=== PATIENT | male | born 1950 | race Caucasian/White ===

== ENCOUNTER 2019-07-16 13:16 | Outpatient (CLI) | payer MEDICARE, OTHER ==
[2019-07-16] MEDS ORDERED: GLIM4TAB4 PO (15:04)
[2019-07-16] MEDS ORDERED: LEVO25TA4 PO (15:04)
[2019-07-16] MEDS ORDERED: turmeric/curcumin PO (15:04)
[2019-07-16] MEDS ORDERED: ASPI-496 PO (15:04)
[2019-07-16] MEDS ORDERED: METF500T17 PO (15:04)
[2019-07-16] MEDS ORDERED: GABA300C10 PO (15:04)
[2019-07-16] MEDS ORDERED: MULT-658 PO (15:04)
[2019-07-16] MEDS ORDERED: ALLO300T PO (15:04)
[2019-07-16] MEDS ORDERED: FURO20TA3 PO (15:04)
[2019-07-16] MEDS ORDERED: TEST100V2 INJ (15:04)
== END 2019-07-16 23:59 | disposition home or self-care (01) ==
LOC: STAR 13:16
PROVIDERS: ATTEND Orthopaedic Surgery
DX: Z01.818 Encounter for other preprocedural examination (principal); M17.11 Unilateral primary osteoarthritis, right knee; M75.100 Unspecified rotator cuff tear or rupture of unspecified shoulder, not specified as traumatic
CPT/HCPCS: 36415; 80053; 85025; 87081; 87147; 93005

== ENCOUNTER 2019-07-24 11:15 | Inpatient (IN) | payer MEDICARE, OTHER ==
[2019-07-16 15:16] LABS: BASOPHILS # (AUTO) 0.04 x10^3/uL (0-0.1); BASOPHILS % (AUTO) 1 % (0-1); EOSINOPHILS # (AUTO) 0.39 x10^3/uL (0-0.4); EOSINOPHILS % (AUTO) 5 % (1-7); LYMPHOCYTES # (AUTO) 1.92 x10^3/uL (1-3.4); LYMPHOCYTES % (AUTO) 22 % (22-44); MD NO; MEAN CORPUSCULAR HEMOGLOBIN 29.5 pg (27.5-34.5); MEAN CORPUSCULAR HGB CONC 32.3 g/dL (33.2-36.2); MEAN CORPUSCULAR VOLUME 91.2 fL (81-97); MEAN PLATELET VOLUME 8.2 fL (7.4-10.4); MONOCYTES # (AUTO) 0.59 x10^3/uL (0.2-0.8); MONOCYTES % (AUTO) 7 % (2-9); NEUTROPHILS # (AUTO) 5.75 x10^3/uL (1.8-6.8); NEUTROPHILS % (AUTO) 66 % (42-75); PLATELET COUNT 203 x10^3/uL (130-400); RED BLOOD COUNT 4.88 x10^6/uL (4.38-5.82)
[2019-07-16 15:27] LABS: ALANINE AMINOTRANSFERASE 33 U/L (12-78); ALBUMIN 3.5 g/dL (3.4-5.0); ANION GAP 8 mmol/L (5-15); CALCIUM 9.1 mg/dL (8.5-10.1); CHLORIDE 111 mmol/L (98-107); CREATININE 1.36 mg/dL (0.7-1.3)
[2019-07-16 15:30] LABS: ALKALINE PHOSPHATASE 81 U/L (45-117); BILIRUBIN,TOTAL 0.4 mg/dL (0.2-1.0); TOTAL PROTEIN 7.4 g/dL (6.4-8.2)
[~2019-07-24] VITALS: Ht 182.9 cm; Wt 124.4 kg
[~2019-07-24 11:15] MED LIST: ALLO300T PO; ASPI-496 PO; FURO20TA3 PO; GABA300C10 PO; GLIM4TAB4 PO; LEVO25TA4 PO; METF500T17 PO; MULT-658 PO; TEST100V2 INJ; turmeric/curcumin PO
[2019-07-24 11:51] VITALS: BP 154/87
[2019-07-24] MEDS ORDERED: LACTATED RINGERS 1,000 ML IV SCH ×2 (11:56→16:23)
[2019-07-24] MEDS ORDERED: MIDAZOLAM 1 MG/ML, 2ML ONE (12:38)
[2019-07-24] MEDS ORDERED: FENTANYL PF 250 MCG/5ML ONE (12:38)
[2019-07-24] MEDS ORDERED: TRANEXAMIC ACID 100 MG/ML, 10ML ONE (13:00)
[2019-07-24] MEDS ORDERED: SODIUM CHLORIDE 0.9% 50 ML ONE (13:01)
[2019-07-24] MEDS ORDERED: EPINEPHRINE 1 MG/ML, 1ML ONE (13:01)
[2019-07-24] MEDS ORDERED: ROPIvacaine/PF 0.2%, 20 ML ONE (13:01)
[2019-07-24] MEDS ORDERED: KETOROLAC 60 MG/2 ML ONE (13:24)
[2019-07-24] MEDS ORDERED: LIDOCAINE-MPF 2% ,5ML ONE (14:07)
[2019-07-24] MEDS ORDERED: LORazepam 2 MG/ML, 1ML IVPush PRN (14:30)
[2019-07-24] MEDS ORDERED: ACETAMINOPHEN 325 MG TABLET PO PRN (14:30)
[2019-07-24] MEDS ORDERED: hydrALAzine 20 MG/ML, 1ML IV PRN (14:30)
[2019-07-24] MEDS ORDERED: HYDROmorphone 2 MG/ML, 1ML IVPush PRN (14:30)
[2019-07-24] MEDS ORDERED: LABETALOL 5MG/ML, 20ML IV PRN (14:30)
[2019-07-24] MEDS ORDERED: OXYcodone 5 MG/5 ML ORAL.SOL UDC PO PRN (14:30)
[2019-07-24] MEDS ORDERED: ONDANSETRON 2MG/ML, 2ML IV PRN (14:30)
[2019-07-24] MEDS ORDERED: MEPERIDINE/PF 25MG/ML,1ML IVPush PRN (14:30)
[2019-07-24] MEDS ORDERED: FENTANYL PF 100 MCG/2ML ONE ×2 (15:14→16:25)
[2019-07-24] MEDS ORDERED: DEXAMETHASONE 4 MG/ML, 1ML ONE (16:15)
[2019-07-24] MEDS ORDERED: CEFAZOLIN 1,000 MG ONE (16:15)
[2019-07-24] MEDS ORDERED: ONDANSETRON 2MG/ML, 2ML ONE (16:15)
[2019-07-24] MEDS ORDERED: PROPOFOL 10 MG/ML, 20ML ONE (16:15)
[2019-07-24] MEDS ORDERED: DIPHENHYDRAMINE 50 MG/ML, 1ML IVPush PRN (16:30)
[2019-07-24] MEDS ORDERED: CEFAZOLIN PMX 1GM/50ML 50 ML IVPB SCH (16:30)
[2019-07-24] MEDS ORDERED: HYDROmorphone 1 MG/ML, 1ML INJ IVPush PRN (16:30)
[2019-07-24] MEDS: FENTANYL PF 100 MCG/2ML IV PRN ×2 (16:30→16:45)
[2019-07-24] MEDS ORDERED: DIPHENHYDRAMINE 25 MG CAPSULE PO PRN (16:30)
[2019-07-24] MEDS ORDERED: ONDANSETRON 2MG/ML, 2ML IVPush PRN (16:30)
[2019-07-24] MEDS ORDERED: ONDANSETRON 4 MG TABLET PO PRN (16:30)
[2019-07-24] MEDS ORDERED: TRANEXAMIC ACID 1,000 MG in SODIUM CHLORIDE 0.9% 100 ML IVPB ONE (17:00)
[2019-07-24] MEDS: ACETAMINOPHEN 500 MG TABLET PO SCH ×2 (17:00→23:09)
[2019-07-24] MEDS ORDERED: ACETAMINOPHEN 650 MG/20.3 ML UDC ONE (17:00)
[2019-07-24 18:00] VITALS: BP 162/86
[2019-07-24 19:11] VITALS: BP 155/88
[2019-07-24] MEDS ORDERED: INSULIN REGULAR 100 UNITS/ML, 3ML VIAL SQ-INSULIN SCH (21:00)
[2019-07-24] MEDS: metFORMIN 500 MG TABLET PO SCH (21:39)
[2019-07-24] MEDS: PREGABALIN 75 MG CAPSULE PO SCH (21:39)
[2019-07-24] MEDS: INSULIN REGULAR 100 UNITS/ML, 3ML VIAL SQ-INSULIN SCH (23:11)
[2019-07-24] MEDS: CEFAZOLIN PMX 1GM/50ML 50 ML IVPB SCH (23:11)
[2019-07-24] MEDS: OXYcodone IR 5MG TABLET PO PRN (23:27)
[2019-07-25] MEDS ORDERED: CEFAZOLIN PMX 1GM/50ML 50 ML IVPB SCH
[2019-07-25] MEDS: OXYcodone IR 5MG TABLET PO PRN ×3 (00:26→22:21)
[2019-07-25] MEDS ORDERED: DIAZEPAM 5 MG TABLET ONE ×2 (00:45→15:14)
[2019-07-25] MEDS: DIAZEPAM 10 MG TABLET PO PRN ×2 (00:47→15:16)
[2019-07-25] MEDS ORDERED: DIAZEPAM 10 MG TABLET PO PRN (01:00)
[2019-07-25 01:36] VITALS: BP 153/85
[2019-07-25] MEDS: ACETAMINOPHEN 500 MG TABLET PO SCH ×4 (04:49→22:20)
[2019-07-25] MEDS ORDERED: DEXAMETHASONE 4 MG/ML, 1ML IVPush SCH (06:00)
[2019-07-25] MEDS: CEFAZOLIN PMX 1GM/50ML 50 ML IVPB SCH (06:35)
[2019-07-25] MEDS: LEVOTHYROXINE 25 MCG TABLET PO SCH (06:35)
[2019-07-25] MEDS: ASPIRIN 81 MG TABLET EC PO SCH ×2 (06:35→17:13)
[2019-07-25] MEDS: metFORMIN 500 MG TABLET PO SCH ×4 (06:35→20:41)
[2019-07-25 06:44] VITALS: BP 136/78
[2019-07-25] MEDS: INSULIN REGULAR 100 UNITS/ML, 3ML VIAL SQ-INSULIN SCH ×4 (07:00→20:42)
[2019-07-25] MEDS: MULTIVITAMIN 1 TABLET PO SCH (08:41)
[2019-07-25] MEDS: PREGABALIN 75 MG CAPSULE PO SCH ×2 (08:41→20:41)
[2019-07-25] MEDS: FUROSEMIDE 40 MG TABLET PO SCH (08:41)
[2019-07-25] MEDS: GLIMEPIRIDE 4 MG TABLET PO SCH (08:41)
[2019-07-25] MEDS: ALLOPURINOL 300 MG TABLET PO SCH (08:43)
[2019-07-25] MEDS ORDERED: LISINOPRIL 5 MG TABLET PO SCH (09:00)
[2019-07-25] MEDS ORDERED: FUROSEMIDE 20 MG TABLET PO SCH (09:00)
[2019-07-25 14:09] VITALS: BP 127/70
[2019-07-25 19:21] VITALS: BP 107/67
[2019-07-26] VITALS (7 sets, daily range): BP systolic 99–149; BP diastolic 56–80
[2019-07-26] MEDS: OXYcodone IR 5MG TABLET PO PRN ×3 (03:10→13:00)
[2019-07-26 05:33] LABS: BASOPHILS # (AUTO) 0.04 x10^3/uL (0-0.1); BASOPHILS % (AUTO) 0 % (0-1); EOSINOPHILS # (AUTO) 0.24 x10^3/uL (0-0.4); EOSINOPHILS % (AUTO) 2 % (1-7); LYMPHOCYTES # (AUTO) 1.16 x10^3/uL (1-3.4); LYMPHOCYTES % (AUTO) 11 % (22-44); MD NO; MEAN CORPUSCULAR HEMOGLOBIN 29.7 pg (27.5-34.5); MEAN CORPUSCULAR HGB CONC 32.5 g/dL (33.2-36.2); MEAN CORPUSCULAR VOLUME 91.3 fL (81-97); MEAN PLATELET VOLUME 8.2 fL (7.4-10.4); MONOCYTES # (AUTO) 0.64 x10^3/uL (0.2-0.8); MONOCYTES % (AUTO) 6 % (2-9); NEUTROPHILS # (AUTO) 8.29 x10^3/uL (1.8-6.8); NEUTROPHILS % (AUTO) 80 % (42-75); PLATELET COUNT 148 x10^3/uL (130-400); RED CELL DISTRIBUTION WIDTH 15.8 % (9.4-14.8)
[2019-07-26 05:41] LABS: ALANINE AMINOTRANSFERASE 18 U/L (12-78); ALBUMIN 2.6 g/dL (3.4-5.0); ANION GAP 7 mmol/L (5-15); CALCIUM 8.2 mg/dL (8.5-10.1); CHLORIDE 111 mmol/L (98-107); CREATININE 1.78 mg/dL (0.7-1.3)
[2019-07-26 05:43] LABS: ALKALINE PHOSPHATASE 62 U/L (45-117); BILIRUBIN,TOTAL 0.7 mg/dL (0.2-1.0); TOTAL PROTEIN 5.9 g/dL (6.4-8.2)
[2019-07-26] MEDS: ACETAMINOPHEN 500 MG TABLET PO SCH ×3 (06:26→16:31)
[2019-07-26] MEDS: LEVOTHYROXINE 25 MCG TABLET PO SCH (06:26)
[2019-07-26] MEDS: ASPIRIN 81 MG TABLET EC PO SCH ×2 (06:27→17:09)
[2019-07-26] MEDS: metFORMIN 500 MG TABLET PO SCH ×4 (06:27→17:00)
[2019-07-26] MEDS: INSULIN REGULAR 100 UNITS/ML, 3ML VIAL SQ-INSULIN SCH ×4 (08:09→21:02)
[2019-07-26] MEDS: METOPROLOL TARTRATE 50 MG TABLET PO SCH ×2 (08:18→17:09)
[2019-07-26] MEDS: PREGABALIN 75 MG CAPSULE PO SCH ×2 (08:18→21:00)
[2019-07-26] MEDS: MULTIVITAMIN 1 TABLET PO SCH (08:19)
[2019-07-26] MEDS: FUROSEMIDE 40 MG TABLET PO SCH (08:19)
[2019-07-26] MEDS: ALLOPURINOL 300 MG TABLET PO SCH (08:19)
[2019-07-26] MEDS: GLIMEPIRIDE 4 MG TABLET PO SCH (08:19)
[2019-07-26] MEDS ORDERED: AMLODIPINE 5 MG TABLET PO SCH (09:00)
[2019-07-26 11:05] LABS: MICROSCOPIC NOT IND
[2019-07-26 11:18] LABS: CULTURE INDICATED? NO
[2019-07-26] MEDS: SODIUM CHLORIDE 0.9% 1,000 ML IV SCH (15:24)
[2019-07-27 00:32] VITALS: BP 127/69
[2019-07-27] MEDS: ACETAMINOPHEN 500 MG TABLET PO SCH ×4 (00:39→17:59)
[2019-07-27] MEDS: SODIUM CHLORIDE 0.9% 1,000 ML IV SCH ×2 (00:40→10:33)
[2019-07-27] MEDS: OXYcodone IR 5MG TABLET PO PRN ×3 (02:54→23:58)
[2019-07-27 05:34] VITALS: BP 136/74
[2019-07-27 05:39] LABS: BASOPHILS # (AUTO) 0.04 x10^3/uL (0-0.1); BASOPHILS % (AUTO) 1 % (0-1); EOSINOPHILS # (AUTO) 0.39 x10^3/uL (0-0.4); EOSINOPHILS % (AUTO) 4 % (1-7); LYMPHOCYTES # (AUTO) 1.51 x10^3/uL (1-3.4); LYMPHOCYTES % (AUTO) 17 % (22-44); MD NO; MEAN CORPUSCULAR HEMOGLOBIN 29.5 pg (27.5-34.5); MEAN CORPUSCULAR HGB CONC 32.4 g/dL (33.2-36.2); MEAN CORPUSCULAR VOLUME 90.9 fL (81-97); MEAN PLATELET VOLUME 8.4 fL (7.4-10.4); MONOCYTES % (AUTO) 7 % (2-9); NEUTROPHILS # (AUTO) 6.36 x10^3/uL (1.8-6.8); NEUTROPHILS % (AUTO) 72 % (42-75); PLATELET COUNT 160 x10^3/uL (130-400); RED BLOOD COUNT 3.53 x10^6/uL (4.38-5.82); RED CELL DISTRIBUTION WIDTH 15.8 % (9.4-14.8)
[2019-07-27] MEDS: ASPIRIN 81 MG TABLET EC PO SCH ×2 (05:40→17:59)
[2019-07-27] MEDS: LEVOTHYROXINE 25 MCG TABLET PO SCH (05:41)
[2019-07-27] MEDS: METOPROLOL TARTRATE 50 MG TABLET PO SCH ×2 (05:41→17:59)
[2019-07-27 05:43] LABS: CALCIUM 8.2 mg/dL (8.5-10.1); CHLORIDE 111 mmol/L (98-107)
[2019-07-27 05:48] LABS: ALANINE AMINOTRANSFERASE 18 U/L (12-78); ALBUMIN 2.6 g/dL (3.4-5.0); ALKALINE PHOSPHATASE 69 U/L (45-117); ANION GAP 7 mmol/L (5-15); BILIRUBIN,TOTAL 0.8 mg/dL (0.2-1.0); CREATININE 1.52 mg/dL (0.7-1.3); TOTAL PROTEIN 6.1 g/dL (6.4-8.2)
[2019-07-27 06:52] VITALS: BP 115/67
[2019-07-27] MEDS: INSULIN REGULAR 100 UNITS/ML, 3ML VIAL SQ-INSULIN SCH ×4 (07:00→20:42)
[2019-07-27] MEDS: PREGABALIN 75 MG CAPSULE PO SCH ×2 (08:02→20:39)
[2019-07-27] MEDS: metFORMIN 500 MG TABLET PO SCH ×2 (08:03→16:26)
[2019-07-27] MEDS: ALLOPURINOL 300 MG TABLET PO SCH (08:03)
[2019-07-27] MEDS: GLIMEPIRIDE 4 MG TABLET PO SCH (08:03)
[2019-07-27] MEDS: FUROSEMIDE 40 MG TABLET PO SCH (08:03)
[2019-07-27] MEDS: MULTIVITAMIN 1 TABLET PO SCH (08:03)
[2019-07-27] MEDS: NEUTRA PHOS K 250 MG TABLET PO SCH ×3 (11:39→20:39)
[2019-07-27] MEDS: MAGNESIUM OXIDE 400 MG TABLET PO SCH (11:39)
[2019-07-27 12:10] VITALS: BP 116/67
[2019-07-27] MEDS ORDERED: MAGNESIUM SULFATE 1 GM in SODIUM CHLORIDE 0.9% 50 ML IV ONE (15:00)
[2019-07-27] MEDS ORDERED: POTASSIUM PHOSPHATE 44 MEQ in SODIUM CHLORIDE 0.9% 500 ML IV ONE (15:30)
[2019-07-27 17:58] VITALS: BP 154/77
[2019-07-27 18:53] VITALS: BP 127/76
[2019-07-28] MEDS: ACETAMINOPHEN 500 MG TABLET PO SCH ×5 (00:07→23:41)
[2019-07-28 00:35] VITALS: BP 112/70
[2019-07-28] MEDS: LEVOTHYROXINE 25 MCG TABLET PO SCH (05:25)
[2019-07-28] MEDS: ASPIRIN 81 MG TABLET EC PO SCH ×2 (05:26→16:45)
[2019-07-28] MEDS: SODIUM CHLORIDE 0.9% 1,000 ML IV SCH ×3 (05:26→23:00)
[2019-07-28] MEDS: METOPROLOL TARTRATE 50 MG TABLET PO SCH ×2 (05:26→16:45)
[2019-07-28 05:40] LABS: ANION GAP 6 mmol/L (5-15); CHLORIDE 113 mmol/L (98-107); CREATININE 1.52 mg/dL (0.7-1.3)
[2019-07-28 06:58] VITALS: BP 124/77
[2019-07-28] MEDS: INSULIN REGULAR 100 UNITS/ML, 3ML VIAL SQ-INSULIN SCH ×4 (07:00→21:18)
[2019-07-28] MEDS: metFORMIN 500 MG TABLET PO SCH ×2 (08:00→16:45)
[2019-07-28] MEDS: MULTIVITAMIN 1 TABLET PO SCH (08:47)
[2019-07-28] MEDS: PREGABALIN 75 MG CAPSULE PO SCH ×2 (08:47→20:50)
[2019-07-28] MEDS: GLIMEPIRIDE 4 MG TABLET PO SCH (08:47)
[2019-07-28] MEDS: ALLOPURINOL 300 MG TABLET PO SCH (08:48)
[2019-07-28] MEDS: MAGNESIUM OXIDE 400 MG TABLET PO SCH (08:48)
[2019-07-28] MEDS: NEUTRA PHOS K 250 MG TABLET PO SCH ×3 (08:48→20:50)
[2019-07-28] MEDS: FUROSEMIDE 40 MG TABLET PO SCH (08:48)
[2019-07-28] MEDS: OXYcodone IR 5MG TABLET PO PRN ×3 (08:54→23:41)
[2019-07-28] MEDS: SENNA/DOCUSATE TABLET PO PRN (08:54)
[2019-07-28 12:26] VITALS: BP 156/77
[2019-07-28 20:25] VITALS: BP_SYST 114; BP_SYST 127; BP_DIAS 70; BP_DIAS 80
[2019-07-29 01:13] VITALS: BP 121/74
[2019-07-29] MEDS: ASPIRIN 81 MG TABLET EC PO SCH (05:57)
[2019-07-29] MEDS: METOPROLOL TARTRATE 50 MG TABLET PO SCH (05:57)
[2019-07-29] MEDS: LEVOTHYROXINE 25 MCG TABLET PO SCH (05:57)
[2019-07-29] MEDS: SENNA/DOCUSATE TABLET PO PRN (05:57)
[2019-07-29 06:00] LABS: ANION GAP 7 mmol/L (5-15); CALCIUM 8.5 mg/dL (8.5-10.1); CHLORIDE 110 mmol/L (98-107); CREATININE 1.42 mg/dL (0.7-1.3)
[2019-07-29] MEDS: ACETAMINOPHEN 500 MG TABLET PO SCH ×2 (06:30→11:28)
[2019-07-29 07:33] VITALS: BP 123/74
[2019-07-29] MEDS: GLIMEPIRIDE 4 MG TABLET PO SCH (08:21)
[2019-07-29] MEDS: PREGABALIN 75 MG CAPSULE PO SCH (08:21)
[2019-07-29] MEDS: INSULIN REGULAR 100 UNITS/ML, 3ML VIAL SQ-INSULIN SCH ×2 (08:21→11:29)
[2019-07-29] MEDS: MULTIVITAMIN 1 TABLET PO SCH (08:22)
[2019-07-29] MEDS: ALLOPURINOL 300 MG TABLET PO SCH (08:22)
[2019-07-29] MEDS: metFORMIN 500 MG TABLET PO SCH (08:22)
[2019-07-29] MEDS: NEUTRA PHOS K 250 MG TABLET PO SCH (08:22)
[2019-07-29] MEDS: MAGNESIUM OXIDE 400 MG TABLET PO SCH (08:22)
[2019-07-29] MEDS: FUROSEMIDE 40 MG TABLET PO SCH (08:22)
[2019-07-29] MEDS: SODIUM CHLORIDE 0.9% 1,000 ML IV SCH (08:28)
[2019-07-29] MEDS ORDERED: BISACODYL 10 MG SUPP PR PRN (08:30)
[2019-07-29] MEDS ORDERED: MAGNESIUM CITRATE 300ML ORAL SOL PO PRN (08:30)
[2019-07-29] MEDS ORDERED: POLYETHYLENE GLYCOL 17 GM PACKET PO SCH (09:00)
[2019-07-29] MEDS: OXYcodone IR 5MG TABLET PO PRN ×2 (09:59→11:28)
[2019-07-29 13:00] VITALS: BP 131/87
[2019-07-29] MEDS ORDERED: METO50TA82 PO (13:08)
[2019-07-29] MEDS ORDERED: TRAM50TA2 PO (13:08)
[2019-07-29] MEDS ORDERED: ASPI81TA45 PO (13:08)
[2019-07-29] MEDS ORDERED: OXYC5TAB3 PO (13:08)
[2019-07-29] MEDS ORDERED: ONDA4TAB12 PO (13:08)
[2019-07-29] MEDS ORDERED: POLY17PO5 PO (13:08)
[2019-07-29] MEDS ORDERED: MAGN400T50 PO (13:08)
== END 2019-07-29 15:50 | disposition home or self-care (01) | DRG 469 ==
LOC: OUT 11:15 → ORIP 16:23 → 4NE 17:55 → OBSVTOIN 07-26 13:02 → DCLOUNGE 07-29 15:36
PROVIDERS: ADMIT Orthopaedic Surgery; ATTEND Internal Medicine
PROC: 3E0T3BZ Introduction of Anesthetic Agent into Peripheral Nerves and Plexi, Percutaneous Approach (ICD-10-PCS; 2019-07-24)
PROC: 0SRC0J9 Replacement of Right Knee Joint with Synthetic Substitute, Cemented, Open Approach (ICD-10-PCS; principal; 2019-07-24 13:30)
DX: M17.11 Unilateral primary osteoarthritis, right knee (principal); N17.0 Acute kidney failure with tubular necrosis; M21.061 Valgus deformity, not elsewhere classified, right knee; E66.01 Morbid (severe) obesity due to excess calories; I10 Essential (primary) hypertension; E11.65 Type 2 diabetes mellitus with hyperglycemia; E03.9 Hypothyroidism, unspecified; Z96.652 Presence of left artificial knee joint; Z91.81 History of falling; Z90.49 Acquired absence of other specified parts of digestive tract; Z79.84 Long term (current) use of oral hypoglycemic drugs; Z79.82 Long term (current) use of aspirin; Z79.899 Other long term (current) drug therapy; Z88.6 Allergy status to analgesic agent; Z88.2 Allergy status to sulfonamides; Z91.09 Other allergy status, other than to drugs and biological substances; Z68.37 Body mass index [BMI] 37.0-37.9, adult; G89.18 Other acute postprocedural pain; T88.59XA Other complications of anesthesia, initial encounter; R41.0 Disorientation, unspecified; Y92.239 Unspecified place in hospital as the place of occurrence of the external cause; T41.1X5A Adverse effect of intravenous anesthetics, initial encounter
CPT/HCPCS: 36415; 71045; 80048; 80053; 81003; 82962; 83036; 83735; 83880; 84100; 84443; 85018; 85025; 87081; 87147; 93970; C1713; G0378; J0171; J0690; J1100; J1815; J1885; J2250; J2405; J2704; J2795; J3010; J3475; C1776; J7030; J7040; J7120